=== PATIENT | male | born 1950 | race Caucasian/White ===

== ENCOUNTER 2016-05-16 12:50 | Inpatient (IN) | payer MEDICARE, BC ==
[~2016-05-16] VITALS: Ht 167.6 cm; Wt 77.0 kg
[~2016-05-16 12:50] MED LIST: FOLIC ACID0.4 MG PO; IRON TABLETS325 MG PO; MELOXICAM; MOBIC 7.5MG7.5 MG PO; TRIMETHOPRIM100 MG PO; TYLENOL 325MG325 MG PO; VITAMIN C500 MG PO; [UNRECOGNIZED DRUG - OTHER]
[2016-07-04] VITALS (11 sets, daily range): BP systolic 115–141; BP diastolic 68–99; PULSE 68–90; TEMP 97.7–98
[2016-07-04] MEDS ORDERED: VIAGRA50 M1 PO (09:18)
[2016-07-05 00:12] VITALS: BP 100/57; PULSE 66; TEMP 98.2
[2016-07-05 04:32] VITALS: BP 102/62; PULSE 70; TEMP 97.5
[2016-07-05 07:40] LABS: HEMOGLOBIN 11.6 g/dl (13.5-18.0)
[2016-07-05 08:13] VITALS: BP 113/64; PULSE 94; TEMP 98.2
[2016-07-05 12:02] VITALS: BP 121/71; PULSE 79; TEMP 97.9
[2016-07-05 15:42] VITALS: BP 112/70; PULSE 84; TEMP 98.2
[2016-07-05 20:18] VITALS: BP 110/66; PULSE 76; TEMP 98
[2016-07-06 04:07] VITALS: BP 122/72; PULSE 85; TEMP 98.2
[2016-07-06 06:39] LABS: HEMATOCRIT 32.7 % (42.0-52.0); HEMOGLOBIN 10.9 g/dl (13.5-18.0)
[2016-07-06 07:42] VITALS: BP 151/83; PULSE 97; TEMP 97.1
[2016-07-06 11:46] VITALS: BP 131/70; PULSE 102; TEMP 98.1
[2016-07-06] MEDS ORDERED: TRIMPEX100 MG PO (14:46)
[2016-07-06 15:38] VITALS: BP 130/74; PULSE 101; TEMP 98.4
[2016-07-06 20:02] VITALS: BP 145/82; PULSE 118; TEMP 98.9
[2016-07-07 04:30] VITALS: BP 129/86; PULSE 93; TEMP 98.6
[2016-07-07 06:25] LABS: HEMATOCRIT 32.9 % (42.0-52.0)
[2016-07-07 07:21] VITALS: BP 141/96; PULSE 100
[2016-07-07 07:28] VITALS: BP 141/96; PULSE 100; TEMP 98.6
[2016-07-07] MEDS ORDERED: TYLENOL 500MG500 MG PO (11:30)
[2016-07-07] MEDS ORDERED: SENOKOT8.6 MG PO (11:31)
[2016-07-07] MEDS ORDERED: XARELTO10 MG PO (11:31)
[2016-07-07] MEDS ORDERED: ZANTAC 150MG T150 MG PO (11:31)
[2016-07-07] MEDS ORDERED: MILK OF MA400 MG/52 PO (11:32)
[2016-07-07] MEDS ORDERED: ROXICODONE 55 MG/TAB PO (11:33)
[2016-07-07] MEDS ORDERED: NORCO 325 MG-7.1 TAB PO (11:33)
== END 2016-07-07 11:45 | DRG 470 ==
LOC: JCC 07-04 08:50
PROVIDERS: Orthopaedic Surgery; Urology
PROC: 0SRC0J9 Replacement of Right Knee Joint with Synthetic Substitute, Cemented, Open Approach (ICD-10-PCS; principal; 2016-07-04 14:00)
PROC: 0T9B70Z Drainage of Bladder with Drainage Device, Via Natural or Artificial Opening (ICD-10-PCS; 2016-07-04 14:00)
DX: M17.11 Unilateral primary osteoarthritis, right knee (principal); N31.9 Neuromuscular dysfunction of bladder, unspecified; B91 Sequelae of poliomyelitis; R33.8 Other retention of urine; M62.81 Muscle weakness (generalized)
CPT/HCPCS: A4315; A9284; C1713; C1776; J0690; J1100; J2250; J2405; J2704; J3010; J7120

== ENCOUNTER → 2016-07-16 | Outpatient (CLI) | payer MEDICARE, BC ==
[~2016-07-16] MED LIST changes: +CIPRO 500MG TA500 MG PO; +MILK OF MA400 MG/52 PO; +NORCO 325 MG-7.1 TAB PO; +ROXICODONE 55 MG/TAB PO; +SENOKOT8.6 MG PO; +TRIMPEX100 MG PO; +TYLENOL 500MG500 MG PO; +VIAGRA50 M1 PO; +XARELTO10 MG PO; +ZANTAC 150MG T150 MG PO
[2016-07-16 22:29] LABS: INFLUENZA B NEGATIVE
== END ==
LOC: ZCOL.LAB 21:42
PROVIDERS: Internal Medicine
DX: J10.1 Influenza due to other identified influenza virus with other respiratory manifestations (principal)

== ENCOUNTER 2017-02-14 12:05 | Day surgery (SDC) | payer MEDICARE, BC ==
[~2017-02-14] VITALS: Ht 165.1 cm; Wt 81.4 kg
[~2017-02-14 12:05] MED LIST changes: -CIPRO 500MG TA500 MG PO
[2017-02-14 12:53] VITALS: BP 134/87; PULSE 83; TEMP 97.7
[2017-02-14] MEDS ORDERED: CIPRO 500MG TA500 MG PO (13:37)
[2017-02-14] MEDS ORDERED: MOBIC 7.5MG7.5 MG PO (13:38)
[2017-02-14 15:37] VITALS: TEMP 97.9
[2017-02-14 16:05] VITALS: BP 152/99; PULSE 53
[2017-02-14 16:20] VITALS: BP 152/89; PULSE 68
[2017-02-14 16:35] VITALS: BP 134/87; PULSE 57
== END 2017-02-14 16:55 | disposition home or self-care (01) ==
LOC: SDCO 12:05
DX: N35.8 Other urethral stricture (principal); I10 Essential (primary) hypertension; M19.90 Unspecified osteoarthritis, unspecified site; G37.3 Acute transverse myelitis in demyelinating disease of central nervous system; Z96.653 Presence of artificial knee joint, bilateral
CPT/HCPCS: J0690; J1100; J2405; J2704; J3010; J7120

== ENCOUNTER 2017-10-17 10:55 | Day surgery (SDC) | payer MEDICARE, BC ==
[~2017-10-17] VITALS: Ht 165.1 cm; Wt 82.1 kg
[~2017-10-17 10:55] MED LIST changes: +CIPRO 500MG TA500 MG PO
[2017-10-17 11:51] VITALS: BP 138/86; PULSE 83; TEMP 97.7
[2017-10-17 13:30] VITALS: BP 131/73; PULSE 64; TEMP 97.2
[2017-10-17 13:45] VITALS: BP 127/81; PULSE 60
[2017-10-17 14:00] VITALS: BP 1557/84; PULSE 66
[2017-10-17 14:15] VITALS: BP 147/87; PULSE 71
[2017-10-17 14:45] VITALS: BP 156/88; PULSE 68
== END 2017-10-17 15:18 | disposition home or self-care (01) ==
LOC: SDCO 10:55
DX: N35.9 Urethral stricture, unspecified (principal); N31.9 Neuromuscular dysfunction of bladder, unspecified; N52.9 Male erectile dysfunction, unspecified; M19.90 Unspecified osteoarthritis, unspecified site; Z96.653 Presence of artificial knee joint, bilateral
CPT/HCPCS: J0690; J2704; J3010; J7120

== ENCOUNTER 2019-02-05 12:50 | Day surgery (SDC) | payer MEDICARE, BC ==
[~2019-02-05] VITALS: Ht 165.1 cm; Wt 81.8 kg
[2019-02-05 13:56] VITALS: BP 144/82; PULSE 75; TEMP 98.6
[2019-02-05] MEDS ORDERED: SINGULAIR 110 MG/TAB PO (14:18)
[2019-02-05] MEDS ORDERED: MULTI VITAMINS1 TAB PO (14:19)
[2019-02-05] MEDS ORDERED: NASAL MOISTURIZ45 ML NS (14:19)
--- NOTE | 2019-02-05 15:00 | NUR ---
Patient continues to await surgery. Resting with eyes closed.
[2019-02-05 15:30] VITALS: BP 158/87; PULSE 70
--- NOTE | 2019-02-05 16:00 | NUR ---
Dr. Cavazos here to talk with the patient. Script for [place] given to spouse and she left to get this filled while patient awaits surgery.
[2019-02-05 17:15] VITALS: BP 156/80; PULSE 59; TEMP 97.3
--- NOTE | 2019-02-05 17:15 | NUR ---
The patient arrived back to [place] [facility] from the recovey room at this time. The patient appears alert and oriented and denies any pain or nausea at this time. Post operative vital signs were started at this time. The patient's friend was brought back to be at his bedside. The patient requests to try some toast, vanilla pudding, water and coffee. The patient has a taylor catheter in place which is secured to his left leg and draining clear, yellow urine. Call light is within reach. The patient denies any further needs at this time. Will continue to monitor the patient.
[2019-02-05 17:30] VITALS: BP 158/87; PULSE 70
--- NOTE | 2019-02-05 17:30 | NUR ---
The patient appears to be tolerating the food and drink well and denies wanting anything further at this time. Vital signs appear stable. Will continue to monitor the patient.
--- NOTE | 2019-02-05 17:45 | NUR ---
Discharge instructions were reviewed with the patient and his friend by SANJUANITA Herring at this time. The nurse also reviewed catheter care with the patient and he verbalized understanding as he has "done it before". The patient's IV was removed and a pressure dressing was applied to the site. The nurse instructed the patient to get dressed and notify the staff when he is ready to be escorted out.
--- NOTE | 2019-02-05 17:56 | NUR ---
The patient was escorted out via wheelchair to a private vehicle by SANJUANITA Herring. The patient's belongings and discharge paperwork were sent with him. The patient's friend is present to drive him home.
[2019-02-06] MEDS ORDERED: BACTRIM DS 8001 TAB PO (14:22)
== END 2019-02-05 17:58 | disposition home or self-care (01) ==
LOC: SDCO 12:50
DX: N35.919 Unspecified urethral stricture, male, unspecified site (principal); N31.9 Neuromuscular dysfunction of bladder, unspecified; Z96.652 Presence of left artificial knee joint; Z79.899 Other long term (current) drug therapy; N52.9 Male erectile dysfunction, unspecified; M19.90 Unspecified osteoarthritis, unspecified site
CPT/HCPCS: J0690; J2270; J2704; J3010; J7120

== ENCOUNTER 2019-02-06 10:26 | Emergency (ER) | payer MEDICARE, BC ==
[~2019-02-06] VITALS: Ht 167.6 cm; Wt 81.8 kg
[~2019-02-06 10:26] MED LIST changes: +MULTI VITAMINS1 TAB PO; +NASAL MOISTURIZ45 ML NS; +SINGULAIR 110 MG/TAB PO
[2019-02-06 11:04] LABS: BASO # 0.1 (0.0-0.2); BASO % 0.4 % (0.0-2.0); EOS % 0.1 % (0-4.0); GRAN # 13.4 (1.4-6.5); GRAN % 89.3 % (42.2-75.2); HEMATOCRIT 39.9 % (42.0-52.0); HEMOGLOBIN 14.1 g/dl (13.5-18.0); LYMPH # 0.5 (1.2-3.4); LYMPH % 3.1 % (20.0-51.0); MEAN CELL VOLUME 99 fl (80.0-100.0); MEAN CORPUSCULAR HEMOGLOBIN 35 pg (27.0-31.0); MEAN CORPUSCULAR HGB CONC 35 g/dl (33.0-37.0); MEAN PLATELET VOLUME 8.7 fl (7.4-10.4); MONO % 6.7 % (1.7-9.3); PLATELET COUNT 225 K/mm3 (130-400); RED BLOOD COUNT 4.05 M/mm3 (4.20-5.60); REDCELL DISTRIBUTION WIDTH-CV 11.9 % (11.5-14.5)
[2019-02-06 11:06] LABS: COLLECTION METHOD CATHETER
[2019-02-06 11:22] LABS: ALBUMIN 3.9 gm/dL (3.5-5.0); BILIRUBIN,TOTAL 1.4 mg/dL (0.0-1.0); C-REACTIVE PROTEIN 5.6 mg/dL (0.0-0.9); CALCIUM 8.9 mg/dL (8.4-10.2); CREATININE, serum 0.68 (0.66-1.25); POTASSIUM 3.9 mmol/L (3.4-5.0)
[2019-02-06 14:02] VITALS: TEMP 98.5
[2019-02-06 14:05] LABS: PH 5 (5-8); URINE APPEARANCE Hazy; URINE COLOR Yellow
[2019-02-06 14:06] LABS: URINE BILIRUBIN Negative (NEGATIVE); URINE BLOOD 1+ (NEGATIVE); URINE GLUCOSE Negative (NEGATIVE); URINE KETONE Trace (NEGATIVE); URINE LEUKOCYTE ESTERASE 2+ (NEGATIVE); URINE NITRATE Negative (NEGATIVE); URINE PROTEIN(semi-quant) 1+ (NEGATIVE); URINE UROBILINOGEN Negative (NEGATIVE)
[2019-02-06 14:10] LABS: SQUAMOUS EPITHELIAL 0-2 /hpf
[2019-02-06 14:11] LABS: MUCOUS Present /lpf; URINE BACTERIA Moderate /hpf
[2019-02-06] MEDS ORDERED: BACTRIM DS 8001 TAB PO (14:22)
[2019-02-06 14:52] VITALS: BP 135/75; PULSE 88
== END 2019-02-06 14:54 | disposition home or self-care (01) ==
LOC: COL.ER 10:26
PROVIDERS: Physician Assistant
DX: N12 Tubulo-interstitial nephritis, not specified as acute or chronic (principal); Z98.890 Other specified postprocedural states; Z87.448 Personal history of other diseases of urinary system; Z87.891 Personal history of nicotine dependence
CPT/HCPCS: A4216; J0696; J7030

== ENCOUNTER 2019-12-24 11:40 | Observation (INO) | payer MEDICARE, BC ==
[2019-12-24] VITALS (12 sets, daily range): BP systolic 97–171; BP diastolic 65–94; PULSE 67–105; TEMP 97.4–98.4
[~2019-12-24] VITALS: Ht 167.6 cm; Wt 82.6 kg
[~2019-12-24 11:40] MED LIST changes: +BACTRIM DS 8001 TAB PO
--- NOTE | 2019-12-24 15:03 | NUR ---
Pt to [facility] 2 via cart from OR. Pt drowsy, but awake. Pt denies pain or nausea. Lewis (14 fr 10ml bulb) to dependant drainage. Urine is a dark landin red. No clots observed. Will continue to monitor. Pt resting. HOB elevated for comfort. Call light within reach.
--- NOTE | 2019-12-24 15:15 | NUR ---
Pt continues to rest. No change to urine. Will keep pt NPO until see's pt postoperatively. Pt voices understanding. Call light within reach.
--- NOTE | 2019-12-24 15:30 | NUR ---
Pt resting. Denies pain. 1100ml of dark landin red urine drained from taylor bag. No clots. Will continue to monitor. Call light within reach.
--- NOTE | 2019-12-24 15:45 | NUR ---
Pt continues to rest. Denies needs. Call light within reach.
--- NOTE | 2019-12-24 16:00 | NUR ---
into see pt and orders Lasix IV and overnight observation due to hematuria. Will continue to monitor. Call light within reach.
--- NOTE | 2019-12-24 16:15 | NUR ---
Lasix 10mg IV given per orders. Coffee and muffin given per pt request. Will continue to monitor.
--- NOTE | 2019-12-24 16:45 | NUR ---
Pt c/o chills, shaking and headache. Pt request tylenol. Orders recieved from . Warm blankets placed on pt.
--- NOTE | 2019-12-24 17:00 | NUR ---
Tylenol 1000mg PO and Demerol 12.5mg IVSP given for head ache and post op shakes. Will continue to monitor. Call light within reach.
--- NOTE | 2019-12-24 19:20 | NUR ---
Report given to Sherita GANN on medical floor. Questions invited and answered. Pt resting. Denies pain or nausea. Ice cream given per pt request
--- NOTE | 2019-12-24 19:40 | NUR ---
Pt transfered to 354 via cart. Belongings (including walker) brought to pt. Sherita GANN at bedside. Pt able to transfer self to bed with minimal nurse assist. Call light within reach. Bed in low position.
--- NOTE | 2019-12-24 20:20 | NUR ---
Received patient via stretcher from surgery. He is alert and oriented. With taylor catheter draining landin red clear urine. With INT om right forearm. Denies pain. Lungs are clear. Patient provided with his dinner. Call light within reach.
[2019-12-25 03:31] VITALS: BP 109/58; PULSE 89; TEMP 98.2
--- NOTE | 2019-12-25 07:12 | NUR ---
Patient had uneventful night. Encouraged to increase oral fluids. This morning he states he has pain on lower abdomen with pain score of 5/10. Tylenol PRN given.
[2019-12-25 07:37] VITALS: BP 113/70; PULSE 80; TEMP 98.4
--- NOTE | 2019-12-25 08:22 | NUR ---
Assessment completed, alert/oriented, vital signs stable, reports suprapubic/ low abd discomfort/ but stated it is tolerable, patient has taylor cath with some landin color urine output/ urology plans to discharge patient home with Cath left in place, he is sitting up at bedside waiting for Breakfast and denies other needs at this time, morning meds givne
--- NOTE | 2019-12-25 12:32 | NUR ---
Discharge instructions reviewed with the patient, instructed him to follow with Urology as directed, changed catheter over to a leg bag and did leg bag teaching, this is not the first time the patient has had a catheter/ leg bag at home so he stated that he is very familiar with this, has instructed him to self-remove catheter at home on thursday 12/28, I provided patient with a syringe and again he stated he has also removed a catheter at home as well, IV removed, patient is leaving with his cousin, I escorted him out via wheelchair
== END 2019-12-25 12:35 | disposition home or self-care (01) ==
LOC: SDCO 11:40 → SURG 16:04 → MEDICAL 18:43
PROVIDERS: ADMIT Urology
DX: N35.912 Unspecified bulbous urethral stricture, male (principal); N31.9 Neuromuscular dysfunction of bladder, unspecified; Z86.12 Personal history of poliomyelitis; Z87.440 Personal history of urinary (tract) infections; M19.90 Unspecified osteoarthritis, unspecified site; Z96.652 Presence of left artificial knee joint; N52.8 Other male erectile dysfunction; Z79.899 Other long term (current) drug therapy; Z91.048 Other nonmedicinal substance allergy status
CPT/HCPCS: C1769; C1894; G0378; J0690; J1940; J2175; J2405; J2704; J3010; J7120

== ENCOUNTER 2020-04-24 09:23 | Emergency (ER) | payer MEDICARE, BC ==
[~2020-04-24] VITALS: Ht 165.1 cm; Wt 84.1 kg
[2020-04-24 09:58] VITALS: TEMP 98.1
[2020-04-24] MEDS ORDERED: AMOXICILLIN 50500 MG PO (10:02)
[2020-04-24 10:46] LABS: COLLECTION METHOD CATHETER
[2020-04-24 10:52] LABS: MUCOUS Present /lpf; PH 6 (5-8); SQUAMOUS EPITHELIAL 0-2 /hpf; URINE APPEARANCE Clear; URINE BACTERIA None Seen /hpf; URINE BILIRUBIN Negative (NEGATIVE); URINE BLOOD Negative (NEGATIVE); URINE COLOR Yellow; URINE GLUCOSE Negative (NEGATIVE); URINE KETONE Negative (NEGATIVE); URINE LEUKOCYTE ESTERASE Negative (NEGATIVE); URINE NITRATE Negative (NEGATIVE); URINE PROTEIN(semi-quant) Negative (NEGATIVE); URINE RBC 0-2 /hpf; URINE UROBILINOGEN Negative (NEGATIVE)
[2020-04-24 11:20] VITALS: BP 140/90; PULSE 84
== END 2020-04-24 11:21 | disposition home or self-care (01) ==
LOC: COL.ER 09:23
PROVIDERS: Nurse Practitioner
DX: R33.9 Retention of urine, unspecified (principal)
CPT/HCPCS: 31854; A4314

== ENCOUNTER 2021-09-08 21:36 | Inpatient (IN) | payer MEDICARE, BC ==
[~2021-09-08] VITALS: Ht 167.6 cm; Wt 80.3 kg
[~2021-09-08 21:36] MED LIST changes: +AMOXICILLIN 50500 MG PO
[2021-09-08 23:53] VITALS: BP 120/69; PULSE 83; TEMP 97.6
[2021-09-09] MEDS ORDERED: ZESTRIL 20MG TA20 MG PO (00:59)
[2021-09-09] MEDS ORDERED: NIZORAL CR 30GM TOP (01:00)
[2021-09-09] MEDS ORDERED: ASPIRIN E.C. 8181 MG PO (01:02)
[2021-09-09] MEDS ORDERED: VIAGRA50 M1 PO (01:02)
[2021-09-09] MEDS ORDERED: TYLENOL 500MG500 MG PO (01:03)
[2021-09-09] MEDS ORDERED: ZYRTEC 10MG10 MG PO (01:03)
[2021-09-09 03:22] LABS: BASO # 0.1 K/mm3 (0.0-0.2); BASO % 0.7 % (0.0-2.0); EOS # 0.3 K/mm3 (0.0-0.7); EOS % 2.6 % (0.0-4.0); GRAN # 6.9 K/mm3 (1.4-6.5); GRAN % 65.8 % (42.2-75.2); HEMOGLOBIN 11.9 g/dl (13.5-18.0); LYMPH # 1.9 K/mm3 (1.2-3.4); LYMPH % 18.1 % (20.0-51.0); MEAN CELL VOLUME 97 fl (80.0-100.0); MEAN CORPUSCULAR HEMOGLOBIN 34 pg (27-31); MEAN CORPUSCULAR HGB CONC 35 g/dl (33.0-37.0); MEAN PLATELET VOLUME 8.6 fl (7.4-10.4); MONO # 1.3 K/mm3 (0.1-0.6); MONO % 12.3 % (1.7-9.3); PLATELET COUNT 301 K/mm3 (130-400); RED BLOOD COUNT 3.55 M/mm3 (4.20-5.60); REDCELL DISTRIBUTION WIDTH-CV 12.6 % (11.5-14.5)
[2021-09-09 03:26] LABS: HEMATOCRIT 34.4 % (42.0-52.0)
[2021-09-09 03:29] LABS: ALBUMIN 3.5 gm/dL (3.4-4.8); BILIRUBIN,TOTAL 0.7 mg/dL (0.2-1.2); CALCIUM 8.5 mg/dL (8.4-10.2); CREATININE, serum 1.13 mg/dL (0.72-1.25); POTASSIUM 4.4 mmol/L (3.5-4.5); TOTAL PROTEIN 6.6 gm/dL (6.2-8.1)
[2021-09-09 03:47] LABS: INR 1.2 (0.8-3.0); PROTHROMBIN TIME 13.1 SECONDS (9.7-12.8)
[2021-09-09 04:37] LABS: COLLECTION METHOD CATHETER
[2021-09-09 04:44] LABS: MUCOUS Present (NOT PRESENT); PH 5 (5-8); SQUAMOUS EPITHELIAL 0-2 /hpf (0-10); URINE APPEARANCE Hazy (CLEAR/HAZY); URINE BACTERIA Occasional /hpf (NONE SEEN); URINE BILIRUBIN Negative (NEGATIVE); URINE BLOOD 2+ (NEGATIVE); URINE COLOR Yellow (YELLOW); URINE GLUCOSE Negative (NEGATIVE); URINE KETONE Negative (NEGATIVE); URINE LEUKOCYTE ESTERASE 2+ (NEGATIVE); URINE NITRATE Negative (NEGATIVE); URINE PROTEIN(semi-quant) Negative (NEGATIVE); URINE UROBILINOGEN Negative (NEGATIVE)
[2021-09-09 04:45] VITALS: BP 124/74; PULSE 73; TEMP 97.9
[2021-09-09 07:56] VITALS: BP 128/61; PULSE 88; TEMP 98.4
[2021-09-09 11:06] VITALS: BP 131/82; PULSE 72; TEMP 98.6
--- NOTE | 2021-09-09 11:49 | NUR ---
First visit from the mortgage manager. No needs right now.
--- NOTE | 2021-09-09 13:44 | NUR ---
rack production worker met with patient to discuss discharge plan. Patient currently lives at home alone in [place]. He is a retired [employer] worker.He repors that prior to this injury he was fully independent with his ADL's and uses both a cane and a walker to assist with ambulation. Patient has no home oxygen needs. PCP is Lexus Mon and he utilizes [facility] for medications with no cost difficulty. Patient states that he does not have a DPOA-HC established. He is and has two children; Werner ([phone]) and Hayley ). Spoke with the patient about the need for post acute rehab. Patient is in agreement with this and his first choice would be [facility] home ( if he can have a private room). Second choice would be [facility]. Referral information sent to both facilities. Discharge plan: SNF; 1.) [facility] home 2.) [facility]
[2021-09-09 16:00] VITALS: BP 133/84; PULSE 81; TEMP 99.8
[2021-09-09 21:12] VITALS: BP 120/63; PULSE 100; TEMP 98.7
--- NOTE | 2021-09-09 23:47 | NUR ---
Patient assesed around 2039. Alert and oriented, and able to make needs known. Reported level 5 pain to left leg, and given PRN [place] as requested for pain. Peripheral INT to right forearm. Denies SOB and dyspnea. LS CTA. HRR. BSAx4. Splint to LLE. Indwelling taylor catheter patent, with clear yellow urine. Patient voices no questions, needs, or concerns at this time. In bed with call light within reach. Bed alarm on.
[2021-09-10] VITALS (7 sets, daily range): BP systolic 99–131; BP diastolic 55–71; PULSE 93–110; TEMP 97.8–99.1
--- NOTE | 2021-09-10 05:37 | NUR ---
Patient has had no further complaints of pain or discomfort this shift since recieving PRN [place] at bedtime. Has been in bed with eyes closed. Voices no questions, needs, or concerns at this itme. In bed with call light within reach. Bed alarm on.
--- NOTE | 2021-09-10 08:15 | NUR ---
Patient resting in bed. Repositioned in bed. Sat up for breakfast and breakfast ordered. Left lower extremity iced & elevated per orders. Stressed the importance of this with patient, so that surgery will not be delayed. Int. Tyelnol for pain pr orderd. Lewis to DD with adequate output. Will monitor.
--- NOTE | 2021-09-10 13:37 | NUR ---
Patient resting in bed. Continue to ice and elevate his LLE. Fresh ice provided & repositioned. Tolerating his lunch. plan of care reviewed. Dana to resume cares
--- NOTE | 2021-09-10 15:47 | NUR ---
LATONYA faxed over referral to [facility] at 3:48 pm 09/10/21
--- NOTE | 2021-09-10 17:59 | NUR ---
Patient eating dinner. A&Ox4. VSS. IV CDI. Left foot dressing CDI, elevated on pillow and ice applied. Denies pain and discomfort. Call light within reach
--- NOTE | 2021-09-10 22:00 | NUR ---
Patient assessed around 2009. Alert and oriented, and able to make needs known. Reported level 5 pain to LLE. Given PRN [place]. Denies SOB and dyspnea. LS CTA. HRR. BSAx4. Abdomen soft and non-tender. Splint to LLE. 2+ edema to toes noted. Indwelling taylor catheter patent, and draining clear yellow urine. Voices no questions, needs, or concerns at this time. In bed with call light within reach. Bed alarm on.
[2021-09-11 03:23] VITALS: BP 121/66; PULSE 90; TEMP 99.7
--- NOTE | 2021-09-11 05:55 | NUR ---
Patient continues to elevate LLE and ice to site. Denies pain and discomfort. Voices no questions, needs, or concerns at this time. Has been NPO since midnight in case surgeon decides to do surgery today. In bed with call light within reach.
[2021-09-11 06:11] LABS: BASO # 0.1 K/mm3 (0.0-0.2); BASO % 0.4 % (0.0-2.0); EOS # 0.3 K/mm3 (0.0-0.7); EOS % 2.3 % (0.0-4.0); GRAN # 7.3 K/mm3 (1.4-6.5); GRAN % 65.3 % (42.2-75.2); HEMOGLOBIN 11.2 g/dl (13.5-18.0); LYMPH # 2.1 K/mm3 (1.2-3.4); LYMPH % 18.6 % (20.0-51.0); MEAN CELL VOLUME 101 fl (80.0-100.0); MEAN CORPUSCULAR HEMOGLOBIN 34 pg (27-31); MEAN CORPUSCULAR HGB CONC 34 g/dl (33.0-37.0); MEAN PLATELET VOLUME 9.1 fl (7.4-10.4); MONO # 1.4 K/mm3 (0.1-0.6); MONO % 12.7 % (1.7-9.3); PLATELET COUNT 278 K/mm3 (130-400); RED BLOOD COUNT 3.29 M/mm3 (4.20-5.60); REDCELL DISTRIBUTION WIDTH-CV 12.7 % (11.5-14.5)
[2021-09-11 06:16] LABS: HEMATOCRIT 33.2 % (42.0-52.0)
[2021-09-11 06:31] LABS: CALCIUM 8.3 mg/dL (8.4-10.2); CREATININE, serum 0.81 mg/dL (0.72-1.25); POTASSIUM 4.5 mmol/L (3.5-4.5)
[2021-09-11 08:00] VITALS: BP 104/76; PULSE 101; TEMP 98.1
--- NOTE | 2021-09-11 08:00 | NUR ---
PATIENT IS A&O. VSS. DENIES PAIN OR NAUSEA. LLE ELEVATED AND ICED WITH SPLINT. PLAN FOR OR TOMORROW. AHA DIET. AM MEDS GIVEN. HEAD TO TOE ASSESSMENT COMPLETE. SIMS TO DD WITH SMALL AMOUNTS OF CLEAR YELLOW URINE NOTED. 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 SCD'S TO BLE. NO OTHER NEEDS AT THIS TIME. CALL LIGHT IN REACH.
--- NOTE | 2021-09-11 08:00 | NUR ---
PATIENT IS A&O. VSS. DENIES PAIN AND REFUSED SCHEDULED AM TYLENOL. GAVE OTHER SCHEDULED AM MEDS. NO C/O N/V. BREAKFAST TRAY AT BEDSIDE. ROUNDED AND CHANGED LLE DRESSING, LOTS OF OOZING, BULKY PRESSURE DRESSING APPLIED BY ORTHO. BLE ELEVATED. IV ABX INFUSING VIA PUMP INTO RIGHT FORARM IV. SIMS TO DD WITH SMALL AMOUNTS OF CLEAR YELLOW URINE NOTED. HEAD TO TOE ASSESSMENT COMPLETE. SCD'S CURRENTLY OFF. POSITIVE PEDAL PULSES TO BLE. NO OTHER NEEDS AT THIS TIME. CALL LIGHT IN REACH.
[2021-09-11 11:50] VITALS: BP 115/60; PULSE 86; TEMP 98.6
[2021-09-11 15:39] VITALS: BP 113/59; PULSE 101; TEMP 98.5
[2021-09-11 20:12] VITALS: BP 98/65; PULSE 103; TEMP 98.9
--- NOTE | 2021-09-11 20:20 | NUR ---
Pt. sitting up in bed. Pt. is A&OX3, assessment complete. INT to rt. forearm patent. LLE CMS wnl. LLE with splint and derek wrap. Pt. denies pain or other needs at this time. Call light within reach.
[2021-09-11 23:29] VITALS: BP 120/76; PULSE 98; TEMP 98.7
[2021-09-12] VITALS (11 sets, daily range): BP systolic 98–133; BP diastolic 53–89; PULSE 86–104; TEMP 98.2–98.7
[2021-09-12 06:32] LABS: BASO # 0.1 K/mm3 (0.0-0.2); BASO % 0.6 % (0.0-2.0); EOS # 0.2 K/mm3 (0.0-0.7); EOS % 2.1 % (0.0-4.0); GRAN # 7.4 K/mm3 (1.4-6.5); GRAN % 68.8 % (42.2-75.2); HEMATOCRIT 33.1 % (42.0-52.0); HEMOGLOBIN 11.4 g/dl (13.5-18.0); LYMPH # 1.8 K/mm3 (1.2-3.4); LYMPH % 16.6 % (20.0-51.0); MEAN CELL VOLUME 100 fl (80.0-100.0); MEAN CORPUSCULAR HEMOGLOBIN 34 pg (27-31); MEAN CORPUSCULAR HGB CONC 34 g/dl (33.0-37.0); MEAN PLATELET VOLUME 8.9 fl (7.4-10.4); MONO # 1.2 K/mm3 (0.1-0.6); MONO % 11.1 % (1.7-9.3); PLATELET COUNT 273 K/mm3 (130-400); RED BLOOD COUNT 3.31 M/mm3 (4.20-5.60); REDCELL DISTRIBUTION WIDTH-CV 12.7 % (11.5-14.5)
[2021-09-12 06:50] LABS: CALCIUM 8.7 mg/dL (8.4-10.2); CREATININE, serum 0.77 mg/dL (0.72-1.25); POTASSIUM 4.7 mmol/L (3.5-4.5)
--- NOTE | 2021-09-12 08:00 | NUR ---
PATIENT IS A&O. VSS. PATIENT REPORTS MILD DISCOMFORT IN LLE. GAVE PRN TYLENOL WITH SCHEDULED AM MEDS WITH SIPS. LLE ELEVATED ON PILLOW AND ICE PACK INPLACE. LLE DRESSING IS CD&I WITH SPLINT & ACEWRAP. NPO FOR SURGERY LATER TODAY. CONSENT OBTAINED AND ON CHART. PRE-OP FLUIDS IN ROOM. SIMS TO DD WITH MOD AMOUNTS OF CLEAR YELLOW URINE. PATIENT HAS HX OF POLIO, NEUROGENIC BLADDER AND STRAIGHT CATHS TID AT HOME. PATIENT REPORTS HE WOULD LIKE TO GO TO [facility] ON DISCHARGE FOR REHAB. HEAD TO TOE ASSESSMENT COMPLETE. NO OTHER NEEDS AT THIS TIME. CALL LIGHT IN REACH. HOSPITALIST TEAM NOW IN ROOM MAKING TEAM ROUNDS.
--- NOTE | 2021-09-12 12:51 | NUR ---
Clinical referral faxed to [facility]
--- NOTE | 2021-09-12 15:25 | NUR ---
[facility] is able to accept this patient. Request made that i send over the patient's insurance cards. Cards printed and sent so snf can verify how many SNF days he has
--- NOTE | 2021-09-12 17:30 | NUR ---
PATIENT BACK IN ROOM POST OP. ORIENTED BUT DROWSY. VSS. PATIENT RESTING COMFORTBALY WITH NO NEEDS. HEAD TO TOE ASSESSMENT COMPLETE. LLE DRESSING IS CD&I WITH SPLINT AND ACEWRAP. ELEVATED LLE WITH PILLOWS AND ICE PACK INPLACE. NO OTHER NEEDS. CALL LIGHT IN REACH.
--- NOTE | 2021-09-12 20:40 | NUR ---
Pt. sitting up in bed. Pt. is A&OX3, assessment complete. INT to rt. forearm leaking. New site started to rt. forearm. 22g started with 1 attempt. IV fluids infusing to new site per orders. Lewis catheter to DD, clear yellow urine noted. Dressing to lle CDI. Pt. reports still feeling numb to lt. foot, unable to wiggle toes yet. Toes are warm to touch and pedal pulse palpated. Pt. request tylenol after IV start. Gave per orders. Pt. denies further needs, call light within reach.
[2021-09-13 03:51] VITALS: BP 105/66; PULSE 87; TEMP 98.1
[2021-09-13 06:17] LABS: BASO % 0.2 % (0.0-2.0); EOS % 0.1 % (0.0-4.0); GRAN # 9.9 K/mm3 (1.4-6.5); GRAN % 80.8 % (42.2-75.2); HEMOGLOBIN 10.2 g/dl (13.5-18.0); LYMPH # 1.1 K/mm3 (1.2-3.4); LYMPH % 8.6 % (20.0-51.0); MEAN CELL VOLUME 101 fl (80.0-100.0); MEAN CORPUSCULAR HEMOGLOBIN 34 pg (27-31); MEAN CORPUSCULAR HGB CONC 33 g/dl (33.0-37.0); MONO # 1.2 K/mm3 (0.1-0.6); MONO % 9.6 % (1.7-9.3); PLATELET COUNT 287 K/mm3 (130-400); RED BLOOD COUNT 3.03 M/mm3 (4.20-5.60); REDCELL DISTRIBUTION WIDTH-CV 12.6 % (11.5-14.5)
[2021-09-13 06:20] LABS: HEMATOCRIT 30.7 % (42.0-52.0)
[2021-09-13 06:33] LABS: CALCIUM 8.1 mg/dL (8.4-10.2); CREATININE, serum 1.03 mg/dL (0.72-1.25); POTASSIUM 4.7 mmol/L (3.5-4.5)
[2021-09-13 08:00] VITALS: BP 115/62; PULSE 78; TEMP 97.9
--- NOTE | 2021-09-13 09:35 | NUR ---
[facility] contacted this SW. Their admitting physician is not in house until Sunday.
[2021-09-13 11:35] VITALS: BP 131/68; PULSE 74; TEMP 98.1
--- NOTE | 2021-09-13 15:12 | NUR ---
PATIENT TO DISCHARGE TOMORROW TO SWING BED IN [place]. NO BEDS AVAIL TODAY. PATIENT DOING WELL AND STABLE. SIMS STILL IN PLACE, AWAITING ORDER TO DC. PATIENT IS NOT CONTROLLING BOWEL MOVEMENTS. STATES IT IS DUE TO STOOL SOFTNER USE AND STATES HE IS USUALLY CONTINENT. NORMALLY SELF CATHS URINE. WILL HOLD STOOL SOFT PER PATIENT REQUEST. BOWEL MOVEMENTS HAVE BEEN SOFT AND FORMED. PATIENT ALSO HAS DIFFICULTY WITH AMUBLATION AT THIS TIME DUE TO LEFT LEG SPLINTING AND POST SURGERY. NO OTHER COMPLAINTS AT THIS TIME. DENIES PAIN.
--- NOTE | 2021-09-13 15:17 | NUR ---
SW touched base with the patient on acceptance of [facility]. Patient asked if his daughter Hayley would be able to transport the patient. Patient reports that it shouldn't be an issue.
[2021-09-13 15:24] VITALS: BP 118/69; PULSE 96; TEMP 98.8
--- NOTE | 2021-09-13 16:28 | NUR ---
SIMS CATHERTER DISCONTINUED. PATIENT GIVEN SUPPLIES TO SELF CATH. WILL MONITOR OUTPUT AND ABILITY TO VOID.
[2021-09-13 19:47] VITALS: BP 117/65; PULSE 75; TEMP 98.7
--- NOTE | 2021-09-13 20:00 | NUR ---
PATIENT IS A&O. VSS. DENIES PAIN OR NAUSEA. RESTING COMFORTABLY IN BED WITH LLE ELEVATED WITH PILLOWS AND ICE PACK INPLACE. LLE DRESSING IS CD&I WITH SPLINT AND ACEWRAP. SCD'S CURRENTLY OFF. PT/OT CONSULTED. PATIENT PLANNONG ON DISCHARGING TO [facility] UPON DISCHARGE. RIGHT FORARM IV TO INT. PATIENT SELF CATHS AT BASELINE DUE TO A HX OF NEUROGENIC BLADDER. HEAD TO TOE ASSESSMENT COMPLETE. PM MEDS GIVEN. NO OTHER NEEDS AT THIS TIME. CALL LIGHT IN REACH.
[2021-09-14 00:05] VITALS: BP 107/62; PULSE 79; TEMP 98.2
[2021-09-14 03:42] VITALS: BP 118/73; PULSE 82; TEMP 98.3
[2021-09-14 06:18] LABS: BASO # 0.1 K/mm3 (0.0-0.2); BASO % 0.5 % (0.0-2.0); EOS # 0.1 K/mm3 (0.0-0.7); EOS % 1.1 % (0.0-4.0); GRAN # 6.6 K/mm3 (1.4-6.5); GRAN % 67.7 % (42.2-75.2); LYMPH # 1.7 K/mm3 (1.2-3.4); LYMPH % 17.4 % (20.0-51.0); MEAN CELL VOLUME 103 fl (80.0-100.0); MEAN CORPUSCULAR HGB CONC 33 g/dl (33.0-37.0); MEAN PLATELET VOLUME 8.9 fl (7.4-10.4); MONO # 1.2 K/mm3 (0.1-0.6); MONO % 12.4 % (1.7-9.3); PLATELET COUNT 263 K/mm3 (130-400); RED BLOOD COUNT 2.89 M/mm3 (4.20-5.60); REDCELL DISTRIBUTION WIDTH-CV 12.7 % (11.5-14.5)
[2021-09-14 06:28] LABS: HEMATOCRIT 29.7 % (42.0-52.0); HEMOGLOBIN 9.9 g/dl (13.5-18.0); MEAN CORPUSCULAR HEMOGLOBIN 34 pg (27-31)
[2021-09-14 06:32] LABS: CALCIUM 8.2 mg/dL (8.4-10.2); CREATININE, serum 0.72 mg/dL (0.72-1.25); POTASSIUM 4.3 mmol/L (3.5-4.5)
[2021-09-14 07:24] VITALS: BP 127/72; PULSE 78; TEMP 98.2
--- NOTE | 2021-09-14 09:30 | NUR ---
Patient up in wheelchair, he worked with therapy this am. Plans for discharge to [facility] [facility], social work assisting with discharge planning.
[2021-09-14 11:58] VITALS: BP 133/68; PULSE 81; TEMP 98.8
--- NOTE | 2021-09-14 12:30 | NUR ---
Patient's clinical updates faxed to [facility]. [facility] states that they should be able to accept this patient today and is waiting to find out who the admitting physician would be. This SW met with patient. Patient presented with the [facility].IM form. Education provided on what the form is. Patient verbalizes his agreement with discharge plan for today to [facility].Signed original placed in the patient's chart and copy provided back to the patient. Patient reports that he has a friend that will be here around 1600 to pick him up for transportation. Claire with [facility] contacts me with accepting physician information. Dr Munoz is the MD accepting and his PA Radha Gramajo will be doing the admission. Doc to Doc and nurse to nurse phone number is: [phone]. Patient's RN and RADHA Khan notified of acceptance and provided the above information for report. Patient's discharge orders faxed to [facility]. Discharge plan: [facility]
--- NOTE | 2021-09-14 12:30 | NUR ---
Patient requesting tylenol for pain. He tolerated lunch tray plans for [place] after 4pm
[2021-09-14 16:18] VITALS: BP 123/70; PULSE 92; TEMP 98.7
--- NOTE | 2021-09-14 17:30 | NUR ---
Patient ready for discharge. Patient daughter taking him to [place]. Patient 3 assisted to daughters car. gaitbelt used, unable to safetly use slideboard. Report called to [place] nurse. questions answered.
== END 2021-09-14 18:59 | disposition swing bed (61) | DRG 493 ==
LOC: SURG 21:36
PROVIDERS: Nurse Practitioner Family; Orthopaedic Surgery; Physician Assistant; ADMIT Internal Medicine
PROC: 0QSH04Z Reposition Left Tibia with Internal Fixation Device, Open Approach (ICD-10-PCS; principal; 2021-09-12 14:45)
DX: S82.872A Displaced pilon fracture of left tibia, initial encounter for closed fracture (principal); N39.0 Urinary tract infection, site not specified; S82.832A Other fracture of upper and lower end of left fibula, initial encounter for closed fracture; I10 Essential (primary) hypertension; G47.33 Obstructive sleep apnea (adult) (pediatric); N31.9 Neuromuscular dysfunction of bladder, unspecified; D53.9 Nutritional anemia, unspecified; B96.20 Unspecified Escherichia coli [E. coli] as the cause of diseases classified elsewhere; W01.0XXA Fall on same level from slipping, tripping and stumbling without subsequent striking against object, initial encounter; Y93.89 Activity, other specified; Y92.007 Garden or yard of unspecified non-institutional (private) residence as the place of occurrence of the external cause; Z96.653 Presence of artificial knee joint, bilateral; Z79.82 Long term (current) use of aspirin; Z23 Encounter for immunization
CPT/HCPCS: 99223-AI; 99231-AI; 99232-AI; 99233-AI; 99239; A9284; C1713; J0690; J0696; J1100; J1650; J2250; J2405; J2704; J2795; J3010

== ENCOUNTER → 2023-03-21 | Outpatient (CLI) | payer MEDICARE, BC ==
[~2023-03-21] MED LIST changes: +ASPIRIN E.C. 8181 MG PO; +NIZORAL CR 30GM TOP; +ZESTRIL 20MG TA20 MG PO; +ZYRTEC 10MG10 MG PO
== END ==
LOC: MHCPAIN 10:23
DX: M51.36 Other intervertebral disc degeneration, lumbar region (principal); M47.896 Other spondylosis, lumbar region; M48.061 Spinal stenosis, lumbar region without neurogenic claudication
CPT/HCPCS: G0463

== ENCOUNTER → 2023-08-14 | Outpatient (CLI) | payer MEDICARE, BC | LOC: MHCPAIN 09:50 | DX: M51.36 Other intervertebral disc degeneration, lumbar region (principal); M47.816 Spondylosis without myelopathy or radiculopathy, lumbar region; M48.061 Spinal stenosis, lumbar region without neurogenic claudication | CPT/HCPCS: G0463 ==

== ENCOUNTER → 2023-09-06 | Outpatient (CLI) | payer MEDICARE, BC ==
[~2023-09-06] MED LIST changes: +Lidocaine PF 2% (20 MG/ML) 5 ML VIAL ONE; +Midazolam 2 MG/2 ML VIAL ONE; +fentaNYL 50 MCG/ML 2 ML VIAL ONE
== END ==
LOC: MHCPAIN 09:26
DX: M47.817 Spondylosis without myelopathy or radiculopathy, lumbosacral region (principal); M54.50 Low back pain, unspecified
CPT/HCPCS: J0665; J2250; J3010

== ENCOUNTER → 2023-09-20 | Outpatient (CLI) | payer MEDICARE, BC | LOC: MHCPAIN 12:14 | DX: M47.817 Spondylosis without myelopathy or radiculopathy, lumbosacral region (principal); M54.50 Low back pain, unspecified | CPT/HCPCS: J0665; J2250; J3010 ==